=== PATIENT | female | born 2000 | race Native Hawaiian/Other Pacific Islander ===

== ENCOUNTER 2020-01-19 17:47 | Emergency (ER) | payer OTHER ==
[~2020-01-19] VITALS: Ht 157.5 cm; Wt 55.8 kg
[2020-01-19 18:41] LABS: PLATELET COUNT 197 K/uL (152-353)
[2020-01-19 18:48] LABS: POTASSIUM 3.5 mmol/L (3.6-5.2)
[2020-01-19 22:20] VITALS: BP 118/79; TEMP 98.7
== END 2020-01-20 00:01 | disposition home or self-care (01) ==
LOC: ED 17:47
PROVIDERS: Emergency Medicine Emergency Medical Services
DX: S22.088A Other fracture of T11-T12 vertebra, initial encounter for closed fracture (principal); S32.018A Other fracture of first lumbar vertebra, initial encounter for closed fracture; K59.09 Other constipation
CPT/HCPCS: 36415; 80053; 81000; 81025; 83690; 85027; 87077; 87086; 87088; 87185; 87186; 96374; 99284; J1885; Q9963